=== PATIENT | female | born 1930 | race American Indian/Alaskan Native ===

== ENCOUNTER 2017-01-30 09:49 | Emergency (ER) | payer MEDICARE ==
[2017-01-30 10:16] VITALS: TEMP 97.7; BMI 32.3
--- NOTE | 2017-01-30 11:24 | ED PDOC ---
Arrival/HPI - General Chief Complaint: Trauma Time Seen by Provider: 01/30/17 11:03 Historian: Patient, Family (daughter) - History of Present Illness Narrative History of Present Illness (Text): 01/30/17 11:24 A 86 year old female, whose past medical history includes DVT (x1 year ago), UTI , syncope, and sepsis, presents to the emergency department for a fall, which occurred 2 days ago. The patient denies any head trauma or injuries. The patient reports she was completely asymptomatic prior to fall and denies losing consciousness prior, during, and after the fall. She currently complains of intermittent back pain, bilateral shoulder pain, and arm discomfort. The patient note she lives at home with her daughter. She was noticed to have bilateral hip ecchymosis today which is why she came to ED. She has been ambulatory. Time/Duration: < week (x 2 days ) Symptom Onset: Sudden Activities at Onset: Light Context: Home Past Medical History - Provider Review Nursing Documentation Reviewed: Yes - Infectious Disease Hx of Infectious Diseases: None - Cardiac Hx Cardiac Disorders: Yes Hx Hypertension: Yes - Pulmonary Hx Respiratory Disorders: No - Neurological Hx Neurological Disorder: Yes Hx Dementia: Yes - HEENT Hx HEENT Disorder: Yes Hx Cataracts: Yes - Renal Hx Renal Disorder: No - Endocrine/Metabolic Hx Endocrine Disorders: Yes Hx Diabetes Mellitus Type 2: Yes - Hematological/Oncological Hx Blood Disorders: No - Integumentary Other/Comment: large areas of brown discolored dry skin to lle and dry skin to ble - Musculoskeletal/Rheumatological Hx Musculoskeletal Disorders: Yes Hx Arthritis: Yes Hx Falls: Yes Hx Unsteady Gait: Yes Other/Comment: Total right knee replacement - Gastrointestinal Hx Gastrointestinal Disorders: No - Genitourinary/Gynecological Hx Genitourinary Disorders: Yes Hx Incontinence: Yes Other/Comment: prolpsed uterus noted with reddened skin at bottom, pt denies pain, has been bleeding "a little" lately, denies painful urination or painful bm's. Pt stated "I'v had this for about 2 weeks. The doctor hasn't seen it yet ". Pt gave to 12 children. - Psychiatric Hx Psychophysiologic Disorder: No Hx Depression: No Hx Emotional Abuse: No Hx Physical Abuse: No Hx Substance Use: No - Surgical History Hx Appendectomy: Yes (teenager) Hx Joint Replacement: Yes (total right knee replacement) - Anesthesia Hx Anesthesia Reactions: No Hx Malignant Hyperthermia: No - Suicidal Assessment Feels Threatened In Home Enviroment: No Family/Social History - Physician Review Nursing Documentation Reviewed: Yes Family/Social History: No Known Family HX Smoking Status: Never Smoked Hx Alcohol Use: No Hx Substance Use: No Hx Substance Use Treatment: No Allergies/Home Meds Allergies/Adverse Reactions: Allergies codeine Allergy (Verified 01/30/17 10:27) FATIGUE shellfish derived Allergy (Verified 01/30/17 10:27) ANAPHYLAXIS Home Medications: Home Meds Medication Instructions Recorded Confirmed Apixaban [Eliquis] 2.5 mg PO BID 01/30/17 01/30/17 Ferrous Sulfate [Feosol] 325 mg PO BID 01/30/17 01/30/17 Naproxen [Naprosyn] 500 mg PO BID 01/30/17 01/30/17 amLODIPine [Norvasc] 5 mg PO DAILY 01/30/17 01/30/17 Review of Systems - Physician Review All systems were reviewed & negative as marked: Yes - Review of Systems Constitutional: absent: Fevers Respiratory: absent: SOB Cardiovascular: absent: Chest Pain Musculoskeletal: Back Pain, Other (Shoulder pain ) Physical Exam - Physical Exam Narrative Physical Exam (Text): 01/30/17 11:25 Constitutional: No acute distress. Head: Normocephalic. Atraumatic. Eyes: PERRL. ENT: Moist mucous membranes. Neck: Supple. Cardiovascular: Regular rate. Chest: No tenderness. Respiratory: Clear to auscultation bilaterally. GI: Soft. Nontender. Nondistended. Back: No CVA tenderness. Musculoskeletal: No swelling of extremities. Ecchymosis to the right and left hip. ROM intact from ankles, knees, and hip. No pelvic tenderness bilaterally. Skin: No rash. Neurologic: Alert, no focal deficit. Vital Signs Reviewed: Yes Vital Signs Temp Pulse Resp BP Pulse Ox 01/30/17 13:27 87 18 151/91 H 99 01/30/17 10:16 97.7 F 91 H 19 153/96 H 98 01/30/17 10:15 97.7 F 91 H 19 153/96 H 98 Temperature: Afebrile Blood Pressure: Hypertensive Pulse: Tachycardic Respiratory Rate: Normal Appearance: Positive for: Well-Appearing, Non-Toxic, Comfortable Pain Distress: None Mental Status: Positive for: Alert and Oriented X 3 Medical Decision Making ED Course and Treatment: 01/30/17 11:27 Impression: A 86 year old female with intermittent back pain and bilateral shoulder pain due to fall. Differential Diagnosis included but are not limited to: Plan: -- Radiology: Hip Bilateral, Shoulder Right -- Reassess and disposition Prior Visits: Notes and results from previous visits were reviewed. The patient was last seen in the emergency department on 11/29/15 for UTI/ Sepsis. The patient was hospitalized. Progress Notes: The patient declines any pain medications/analgesics. XR shoulder and XR hips no fracture or dislocation. Patient has tramadol prescription already from Dr. Ortiz and family states he will follow up with her at her home. - RAD Interpretation Radiology Orders: 01/30/17 11:03 Hip Bilateral [HIP MIN 3V W/ PELVIS GUNNER] [RAD] Stat SHOULDER RIGHT [RAD] Stat - Scribe Statement The provider has reviewed the documentation as recorded by the Scribe Qian Rogel Provider Scribe Attestation: All medical record entries made by the Scribe were at my direction and personally dictated by me. I have reviewed the chart and agree that the record accurately reflects my personal performance of the history, physical exam, medical decision making, and the department course for this patient. I have also personally directed, reviewed, and agree with the discharge instructions and disposition. Disposition/Present on Arrival - Present on Arrival Any Indicators Present on Arrival: No History of DVT/PE: No History of Uncontrolled Diabetes: No Urinary Catheter: No History of Decub. Ulcer: No History Surgical Site Infection Following: None - Disposition Have Diagnosis and Disposition been Completed?: Yes Diagnosis: Fall, Contusion Disposition: HOME/ ROUTINE Disposition Time: 13:00 Patient Plan: Discharge Condition: STABLE Discharge Instructions (ExitCare): Hip Contusion (ED) Referrals: Jaret Ortiz MD [Primary Care Provider] - Follow up with primary Forms: [employer] (Czech)
--- NOTE | 2017-01-30 13:21 | RAD ---
PROCEDURE: Pelvis three views HISTORY: fall, hip ecchymosis COMPARISON: TECHNIQUE: Three views FINDINGS: There is no evidence of pelvic or hip fracture. No bony abnormalities seen IMPRESSION: Negative study
--- NOTE | 2017-01-30 13:21 | RAD ---
PROCEDURE: Radiographs of the Right Shoulder HISTORY: fall, R shoulder pain COMPARISON: No prior. FINDINGS: BONES: Normal. No fracture. JOINTS: Normal. Glenohumeral and acromioclavicular joints preserved. No osteoarthritis. SOFT TISSUES: Normal. OTHER FINDINGS: None. IMPRESSION: Normal radiographs of the right shoulder.
[2017-01-30 13:27] VITALS: BP 151/91; PULSE 87; RESP 18; O2SAT 99
== END 2017-01-30 13:28 | disposition home or self-care (01) ==
LOC: ED 09:49
DX: S70.02XA Contusion of left hip, initial encounter (principal); S70.01XA Contusion of right hip, initial encounter; W19.XXXA Unspecified fall, initial encounter; Y92.009 Unspecified place in unspecified non-institutional (private) residence as the place of occurrence of the external cause; I10 Essential (primary) hypertension; E11.9 Type 2 diabetes mellitus without complications

== ENCOUNTER 2017-04-12 19:09 | Emergency (ER) | payer MEDICARE ==
[2017-04-12 19:09] VITALS: BMI 32.3
[2017-04-12 19:37] VITALS: BP 142/86; PULSE 104; RESP 20; TEMP 98.9; O2SAT 97
--- NOTE | 2017-04-12 20:31 | CT ---
EXAM: CT Head Without Intravenous Contrast CLINICAL HISTORY: 86 years old, female; Injury or trauma; Fall; Initial encounter; Concussion / head injury TECHNIQUE: Axial computed tomography images of the head/brain without intravenous contrast. All CT scans at this facility use one or more dose reduction techniques, viz.: automated exposure control; ma/kV adjustment per patient size (including targeted exams where dose is matched to indication; i.e. head); or iterative reconstruction technique. COMPARISON: CT - HEAD W/O CONTRAST 2015-11-29 17:30 FINDINGS: Brain: Moderate atrophy. No intracranial hemorrhage. No mass. Mild encephalomalacia within LEFT frontal region. Multiple scattered foci of decreased attenuation within periventricular/subcortical white matter. No edema. Ventricles: No hydrocephalus. Bones/joints: No acute fracture. Soft tissues: LEFT frontal soft tissue swelling. Vasculature: Atherosclerotic disease of intracranial arteries. Sinuses: No acute sinusitis. Mastoid air cells: No mastoid effusion. Orbits: Unremarkable as visualized. IMPRESSION: 1. No intracranial hemorrhage. 2. Nonspecific white matter changes. 3. Incidental/non-acute findings are described above.
--- NOTE | 2017-04-12 20:43 | ED PDOC ---
Arrival/HPI - General Chief Complaint: Trauma Time Seen by Provider: 04/12/17 19:27 Historian: Patient - History of Present Illness Narrative History of Present Illness (Text): 04/12/17 20:37 86yo female with PMHx of hypertension, Alzheimer's biba for head injury s/p trauma this evening. Patient and the family members by the bedside notes chronic history of unsteady gait. Patient states she slipped while in the bathroom and hit face on the bathtub. She reports mild pain over the swelling on her left forehead. She denies LOC, nausea, focal weakness, dizziness, visual changes, any other complaint. Past Medical History - Provider Review Nursing Documentation Reviewed: Yes - Infectious Disease Hx of Infectious Diseases: None - Cardiac Hx Cardiac Disorders: Yes Hx Hypertension: Yes - Pulmonary Hx Respiratory Disorders: No - Neurological Hx Neurological Disorder: Yes Hx Dementia: Yes - HEENT Hx HEENT Disorder: Yes Hx Cataracts: Yes - Renal Hx Renal Disorder: No - Endocrine/Metabolic Hx Endocrine Disorders: Yes Hx Diabetes Mellitus Type 2: Yes - Hematological/Oncological Hx Blood Disorders: No - Integumentary Other/Comment: large areas of brown discolored dry skin to lle and dry skin to ble - Musculoskeletal/Rheumatological Hx Musculoskeletal Disorders: Yes Hx Arthritis: Yes Hx Falls: Yes Hx Unsteady Gait: Yes Other/Comment: Total right knee replacement - Gastrointestinal Hx Gastrointestinal Disorders: No - Genitourinary/Gynecological Hx Genitourinary Disorders: Yes Hx Incontinence: Yes Other/Comment: prolpsed uterus noted with reddened skin at bottom, pt denies pain, has been bleeding "a little" lately, denies painful urination or painful bm's. Pt stated "I'v had this for about 2 weeks. The doctor hasn't seen it yet ". Pt gave to 12 children. - Psychiatric Hx Psychophysiologic Disorder: No Hx Depression: No Hx Emotional Abuse: No Hx Physical Abuse: No Hx Substance Use: No - Surgical History Hx Appendectomy: Yes (teenager) Hx Joint Replacement: Yes (total right knee replacement) - Anesthesia Hx Anesthesia Reactions: No Hx Malignant Hyperthermia: No - Suicidal Assessment Feels Threatened In Home Enviroment: No Family/Social History - Physician Review Nursing Documentation Reviewed: Yes Family/Social History: Unknown Family HX Smoking Status: Never Smoked Hx Alcohol Use: No Hx Substance Use: No Hx Substance Use Treatment: No Allergies/Home Meds Allergies/Adverse Reactions: Allergies codeine Allergy (Verified 01/30/17 10:27) FATIGUE shellfish derived Allergy (Verified 01/30/17 10:27) ANAPHYLAXIS Home Medications: Home Meds Medication Instructions Recorded Confirmed Ferrous Sulfate [Feosol] 325 mg PO BID 01/30/17 04/12/17 amLODIPine [Norvasc] 5 mg PO DAILY 01/30/17 04/12/17 Review of Systems - Physician Review All systems were reviewed & negative as marked: Yes - Review of Systems Constitutional: Normal Eyes: Normal ENT: Normal Respiratory: Normal Cardiovascular: Normal Gastrointestinal: Normal Genitourinary Female: Normal Musculoskeletal: Normal Skin: Normal Neurological: Headache. absent: Dizziness, Focal Weakness Endocrine: Normal Hemo/Lymphatic: Normal Psychiatric: Normal Physical Exam Vital Signs Reviewed: Yes Vital Signs Temp Pulse Resp BP Pulse Ox 04/12/17 19:16 98.9 F 104 H 20 142/86 97 Temperature: Afebrile Blood Pressure: Normal Pulse: Regular Respiratory Rate: Normal Appearance: Positive for: Well-Appearing, Non-Toxic, Comfortable Pain Distress: None Mental Status: Positive for: Alert and Oriented X 3 - Systems Exam Head: Present: Normocephalic, Contusion (Approximately 4 x 4cm hematoma noted on left forehead with overlaying tenderness on palpation and bruise). No: Atraumatic Pupils: Present: PERRL Extroacular Muscles: Present: EOMI Conjunctiva: Present: Normal Mouth: Present: Moist Mucous Membranes Neck: Present: Normal Range of Motion Respiratory/Chest: Present: Clear to Auscultation, Good Air Exchange. No: Respiratory Distress, Accessory Muscle Use Cardiovascular: Present: Regular Rate and Rhythm, Normal S1, S2. No: Murmurs Abdomen: Present: Normal Bowel Sounds. No: Tenderness, Distention, Peritoneal Signs Back: Present: Normal Inspection Upper Extremity: Present: Normal Inspection. No: Cyanosis, Edema Lower Extremity: Present: Normal Inspection. No: Edema Neurological: Present: GCS=15, CN II-XII Intact, Speech Normal Skin: Present: Warm, Dry, Normal Color. No: Rashes Psychiatric: Present: Alert, Oriented x 3, Normal Insight, Normal Concentration Medical Decision Making ED Course and Treatment: 04/12/17 20:44 PT was AAO x3 and neurological intact in ED Head CT - Negative Ice was placed in ED and Tylenol given for headache. She was referred to her PMD. TRT ED for any new or worsening symptoms - RAD Interpretation Radiology Orders: 04/12/17 19:27 HEAD W/O CONTRAST [CT] Stat - Medication Orders Current Medication Orders: Discontinued Medications Acetaminophen (Tylenol 325mg Tab) 650 mg PO STAT STA Stop: 04/12/17 19:28 Last Admin: 04/12/17 19:38 Dose: 650 mg Disposition/Present on Arrival - Present on Arrival Any Indicators Present on Arrival: No History of DVT/PE: No History of Uncontrolled Diabetes: No Urinary Catheter: No History of Decub. Ulcer: No History Surgical Site Infection Following: None - Disposition Have Diagnosis and Disposition been Completed?: Yes Diagnosis: Head injury Disposition: HOME/ ROUTINE Disposition Time: 20:50 Patient Plan: Discharge Patient Problems: Current Active Problems Problem Status Onset Head injury Acute Condition: STABLE Discharge Instructions (ExitCare): Head Injury (ED) Additional Instructions: Follow up with your Doctor apply ice to area and avoid any strenuous activity Return to ED for any new or worsening symptoms Referrals: Jaret Ortiz MD [Primary Care Provider] - Follow up with primary Forms: [employer] (Polish)
--- NOTE | 2017-04-13 09:17 | CARD ---
APPROVED REPORT EKG Measurement Heart [id number] <Conclusion> Normal sinus rhythm NSSTW changes, new since 12/02/15 Prolonged QTc
== END 2017-04-12 20:59 | disposition home or self-care (01) ==
LOC: ED 19:09
DX: S09.90XA Unspecified injury of head, initial encounter (principal); W01.198A Fall on same level from slipping, tripping and stumbling with subsequent striking against other object, initial encounter; E11.9 Type 2 diabetes mellitus without complications; F02.80 Dementia in other diseases classified elsewhere, unspecified severity, without behavioral disturbance, psychotic disturbance, mood disturbance, and anxiety; G30.9 Alzheimer's disease, unspecified; I10 Essential (primary) hypertension

== ENCOUNTER 2017-09-09 23:08 | Observation (INO) | payer MEDICARE, OTHER ==
[2017-09-09 23:14] VITALS: BMI 18.8
--- NOTE | 2017-09-09 23:39 | ED PDOC ---
Arrival/HPI - General Chief Complaint: Weakness/Neurological Deficit Time Seen by Provider: 09/09/17 23:15 Historian: Patient, Family - History of Present Illness Narrative History of Present Illness (Text): 09/09/17 23:38 Demetria Nicole is an 87 year old female, whose past medical history includes DVT , UTI, hypertension, and Alzheimer's dementia, who presents to the Emergency department brought in by family complaining of lethargy and generalized weakness. Relative states patient has been experiencing a cough for the past 5 days and was given Promethazine at 19:00 today. Relative states patient then became lethargic and was unable to ambulate secondary to generalized weakness. Relative also notes associated elevated blood pressure and subjective fever. Patient denies any chest pain, abdominal pain, vomiting, diarrhea, or any other complaints. Time/Duration: Other (today) Symptom Onset: Gradual Symptom Course: Unchanged Activities at Onset: Light Context: Home Past Medical History - Provider Review Nursing Documentation Reviewed: Yes - Infectious Disease Hx of Infectious Diseases: None - Cardiac Hx Cardiac Disorders: Yes Hx Hypertension: Yes - Pulmonary Hx Respiratory Disorders: No - Neurological Hx Neurological Disorder: Yes Hx Dementia: Yes - HEENT Hx HEENT Disorder: Yes Hx Cataracts: Yes - Renal Hx Renal Disorder: No - Endocrine/Metabolic Hx Endocrine Disorders: Yes Hx Diabetes Mellitus Type 2: Yes - Hematological/Oncological Hx Blood Disorders: No - Integumentary Other/Comment: large areas of brown discolored dry skin to lle and dry skin to ble - Musculoskeletal/Rheumatological Hx Musculoskeletal Disorders: Yes Hx Arthritis: Yes Hx Falls: Yes Hx Unsteady Gait: Yes Other/Comment: Total right knee replacement - Gastrointestinal Hx Gastrointestinal Disorders: No - Genitourinary/Gynecological Hx Genitourinary Disorders: Yes Hx Incontinence: Yes Other/Comment: prolpsed uterus noted with reddened skin at bottom, pt denies pain, has been bleeding "a little" lately, denies painful urination or painful bm's. Pt stated "I'v had this for about 2 weeks. The doctor hasn't seen it yet ". Pt gave to 12 children. - Psychiatric Hx Psychophysiologic Disorder: No Hx Depression: No Hx Emotional Abuse: No Hx Physical Abuse: No Hx Substance Use: No - Surgical History Hx Appendectomy: Yes (teenager) Hx Joint Replacement: Yes (total right knee replacement) - Anesthesia Hx Anesthesia Reactions: No Hx Malignant Hyperthermia: No - Suicidal Assessment Feels Threatened In Home Enviroment: No Family/Social History - Physician Review Nursing Documentation Reviewed: Yes Family/Social History: Unknown Family HX Smoking Status: Never Smoked Hx Alcohol Use: No Hx Substance Use: No Hx Substance Use Treatment: No Allergies/Home Meds Allergies/Adverse Reactions: Allergies codeine Allergy (Verified 09/09/17 23:13) FATIGUE shellfish derived Allergy (Verified 09/09/17 23:13) ANAPHYLAXIS Home Medications: Home Meds Medication Instructions Recorded Confirmed Ferrous Sulfate [Feosol] 325 mg PO BID 01/30/17 04/12/17 amLODIPine [Norvasc] 5 mg PO DAILY 01/30/17 04/12/17 Review of Systems - Physician Review All systems were reviewed & negative as marked: Yes - Review of Systems Constitutional: Fatigue, Fevers Eyes: Normal ENT: Normal Respiratory: Cough. absent: SOB Cardiovascular: Normal. absent: Chest Pain Gastrointestinal: Normal. absent: Abdominal Pain, Diarrhea, Nausea, Vomiting Genitourinary Female: Normal. absent: Dysuria, Frequency, Hematuria, Urine Output Changes Musculoskeletal: Normal. absent: Back Pain, Neck Pain Skin: Normal. absent: Rash Endocrine: Normal Hemo/Lymphatic: Normal Psychiatric: Normal Physical Exam Vital Signs Reviewed: Yes Vital Signs Temp Pulse Resp BP Pulse Ox 09/10/17 03:45 86 18 97 09/09/17 23:35 98.6 F 100 H 18 155/82 H 96 Temperature: Afebrile Blood Pressure: Normal Pulse: Regular Respiratory Rate: Normal Appearance: Positive for: Well-Appearing, Non-Toxic, Comfortable Pain Distress: None Mental Status: Positive for: Alert and Oriented X 3 - Systems Exam Head: Present: Atraumatic, Normocephalic Pupils: Present: PERRL Extroacular Muscles: Present: EOMI Conjunctiva: Present: Normal Mouth: Present: Moist Mucous Membranes Neck: Present: Normal Range of Motion Respiratory/Chest: Present: Clear to Auscultation, Good Air Exchange. No: Respiratory Distress, Accessory Muscle Use Cardiovascular: Present: Regular Rate and Rhythm, Normal S1, S2. No: Murmurs Abdomen: No: Tenderness, Distention, Peritoneal Signs Back: Present: Normal Inspection Upper Extremity: Present: Normal Inspection. No: Cyanosis, Edema Lower Extremity: Present: Normal Inspection. No: Edema Neurological: Present: GCS=15, CN II-XII Intact, Speech Normal Skin: Present: Warm, Dry, Normal Color. No: Rashes Psychiatric: Present: Alert, Oriented x 3, Normal Insight, Normal Concentration Medical Decision Making ED Course and Treatment: 09/09/17 23:38 Impression: 87 year old female brought in for lethargy, generalized weakness, fever, and cough. Plan: -- CT Head w/o contrast -- EKG -- Chest X-ray -- Labs, cardiac enzymes, TSH, blood cultures -- Urinalysis, urine cultures, urine drug screen -- Reassess and disposition Prior Visits: Notes and results from previous visits were reviewed. Progress Notes: reviewed EKG, NSR at [address] bpm[address] Non-specific ST/T wave changes. 09/10/17 02:00 Chest X-ray reviewed, shows right-sided patchy infiltrates. 09/10/17 02:47 Case discussed with chief medical director occupational therapy assistant, who is aware and agrees with plan. 09/10/17 02:[address] Nguyen, who is aware and agrees with plan. Accepts pt in to hospitalist service. Pt will go to Remote Telemetry for pneumonia. 09/10/17 03:33 CT Head shows: Limitations: Motion artifact - mild. Brain: Moderate atrophy. No definite intracranial hemorrhage. No mass. Mild encephalomalacia within left frontal region. Extensive decreased attenuation within periventricular/subcortical white matter. Probable chronic lacunar infarcts within basal ganglia. No definite edema. Ventricles: No hydrocephalus. Bones/joints: No acute fracture. Soft tissues: Unremarkable. Vasculature: Mild atherosclerotic disease of intracranial arteries. Sinuses: No acute sinusitis. Mastoid air cells: No mastoid effusion. Orbits: Unremarkable as visualized. IMPRESSION: 1. Nonspecific white matter changes. Acute infarction may be CT occult within first 24 hours. If a focal deficit persists, consider followup CT or MRI for further evaluation. 2. Incidental/non-acute findings are described above. - Lab Interpretations Lab Results: 09/10/17 00:10 09/10/17 00:10 Lab Results 09/10/17 02:03: Urine Opiates Screen Negative, Urine Methadone Screen Negative, Ur Barbiturates Screen Negative, Ur Phencyclidine Scrn Negative, Ur Amphetamines Screen Negative, U Benzodiazepines Scrn Negative, U Oth Cocaine Metabols Negative, U Cannabinoids Screen Negative 09/10/17 02:03: Urine Color Yellow, Urine Appearance Sl cloudy, Urine pH 6.0, Ur Specific [place] 1.025, Urine Protein 100 H, Urine Glucose (UA) Negative, Urine Ketones Negative, Urine Blood Negative, Urine Nitrate Negative, Urine Bilirubin Negative, Urine Urobilinogen 0.2, Ur Leukocyte Esterase Negative, Urine RBC 0 - 2, Urine WBC Negative, Ur Epithelial Cells 4 - 5, Urine Bacteria Mod, Urine Other Mucus 09/10/17 00:10: Sodium 141, Potassium 3.3 L, Chloride 102, Carbon Dioxide 26, Anion Gap 16, BUN 17, Creatinine 0.7, Est GFR ( Amer) > 60, Est GFR (Non- Af Amer) > 60, Random Glucose 146 H, Calcium 9.5, Phosphorus 3.3, Magnesium 1.8 , Total Bilirubin 0.7, AST 36, ALT 17, Alkaline Phosphatase 52, Lactate Dehydrogenase 598, Total Creatine Kinase 65, Troponin I < 0.01, Total Protein 8.9 H, Albumin 4.3, Globulin 4.6, Albumin/Globulin Ratio 0.9 L 09/10/17 00:10: PT 12.6 H, INR 1.10 H, APTT 24.3 L 09/10/17 00:10: WBC 15.2 H D, RBC 4.26, Hgb 12.4, Hct 37.6, MCV 88.3, MCH 29.1, MCHC 33.0, RDW 14.7 H, Plt Count 161, MPV 9.5, Gran % 91.9 H, Lymph % (Auto) 4.7 L, Cavalier % (Auto) 3.2, Eos % (Auto) 0.1 L, Baso % (Auto) 0.1, Gran # 14.01 H , Lymph # (Auto) 0.7 L, Cavalier # (Auto) 0.5, Eos # (Auto) 0.0, Baso # (Auto) 0.01 , Neutrophils % (Manual) 92 H, Band Neutrophils % 1, Lymphocytes % (Manual) 4 L , Monocytes % (Manual) 3, Toxic Granulation Slight, Platelet Evaluation Normal, Large Platelets Present, Ovalocytes Slight 09/09/17 23:59: Procalcitonin < 0.05 L 09/09/17 23:59: TSH 3rd Generation 0.80 I have reviewed the lab results: Yes - RAD Interpretation Radiology Orders: 09/09/17 23:44 HEAD W/O CONTRAST [CT] Stat 09/09/17 23:46 CHEST ONE VIEW [RAD] Stat Academic Program Specialist: ED Physician, Radiologist - EKG Interpretation Interpreted by ED Physician: Yes Type: 12 lead EKG - Medication Orders Current Medication Orders: Amlodipine Besylate (Norvasc) 5 mg PO DAILY [facility] Last Admin: 09/10/17 10:00 Dose: 5 mg MAR Pulse and Blood Pressure Document 09/10/17 10:00 (Rec: 09/10/17 10:00 [id number] Pulse Pulse Rate (60-90) 85 Blood Pressure Blood Pressure (100/60-150/90) 147/81 Donepezil HCl (Aricept) 5 mg PO HS [facility] Heparin Sodium (Porcine) (Heparin) 5,000 units SC Q12 ALYCE PRN Reason: Protocol Last Admin: 09/10/17 10:00 Dose: 5,000 units Subcutaneous Administrations Document 09/10/17 10:00 (Rec: 09/10/17 10:00 [facility] [id number]) Injection Site MAR Injection Site Right Abdomen Charges for Administration # of Subcutaneous Administrations 1 Ceftriaxone Sodium (Rocephin 1 Gram Ivpb) 1 gm in 100 mls @ 100 mls/hr IVPB DAILY ALYCE PRN Reason: Protocol Stop: 09/14/17 10:59 Last Admin: 09/10/17 14:02 Dose: 100 mls/hr eMAR Start Stop Document 09/10/17 14:02 (Rec: 09/10/17 14:02 [facility] [id number]) Intravenous Solution Start Date 09/10/17 Start Time 14:02 End Date 09/10/17 End time 15:10 Total Infusion Time 68 Pantoprazole Sodium (Protonix Ec Tab) 40 mg PO 0600 [facility] Last Admin: 09/10/17 06:43 Dose: Not Given Non-Admin Reason: Patient Lethargic Discontinued Medications Diphenhydramine HCl (Benadryl) 10 mg IVP STAT STA Stop: 09/10/17 17:23 Last Admin: 09/10/17 17:41 Dose: Diphenhydramine HCl (Benadryl) 25 mg PO STAT STA Stop: 09/10/17 18:08 Ceftriaxone Sodium (Rocephin 1 Gram Ivpb) 1 gm in 100 mls @ 200 mls/hr IVPB STAT STA PRN Reason: Protocol Stop: 09/10/17 03:18 Last Admin: 09/10/17 03:05 Dose: 200 mls/hr eMAR Start Stop Document 09/10/17 03:05 SS (Rec: 09/10/17 03:05 SS [id number]) Intravenous Solution Start Date 09/10/17 Start Time 03:05 End Date 09/10/17 End time 03:35 Total Infusion Time 30 Azithromycin (Zithromax 500mg In Ns) 500 mg in 250 mls @ 167 mls/hr IVPB STAT STA PRN Reason: Protocol Stop: 09/10/17 04:19 Last Admin: 09/10/17 03:41 Dose: 167 mls/hr eMAR Start Stop Document 09/10/17 03:41 SS (Rec: 09/10/17 03:41 SS [id number]) Intravenous Solution Start Date 09/10/17 Start Time 03:41 End Date 09/10/17 End time 05:11 Total Infusion Time 90 Azithromycin (Zithromax 500mg In Ns) 500 mg in 250 mls @ 167 mls/hr IVPB DAILY ALYCE PRN Reason: Protocol Last Admin: 09/10/17 16:25 Dose: 167 mls/hr eMAR Start Stop Document 09/10/17 16:25 JJ (Rec: 09/10/17 16:26 [id number] Intravenous Solution Start Date 09/10/17 Start Time 16:25 End Date 09/10/17 End time 18:00 Total Infusion Time 95 Potassium Chloride (K-Dur 20 Meq Er Tab) 20 meq PO ONCE ONE Stop: 09/10/17 00:39 Last Admin: 09/10/17 01:56 Dose: 20 meq Potassium Chloride (K-Dur 20 Meq Er Tab) 40 meq PO STAT STA Stop: 09/10/17 08:49 Last Admin: 09/10/17 10:00 Dose: 40 meq - Scribe Statement The provider has reviewed the documentation as recorded by the Scribenzo Choi All medical record entries made by the Siddharthaibenzo were at my direction and personally dictated by me. I have reviewed the chart and agree that the record accurately reflects my personal performance of the history, physical exam, medical decision making, and the department course for this patient. I have also personally directed, reviewed, and agree with the discharge instructions and disposition. Disposition/Present on Arrival - Present on Arrival Any Indicators Present on Arrival: No History of DVT/PE: No History of Uncontrolled Diabetes: No Urinary Catheter: No History of Decub. Ulcer: No History Surgical Site Infection Following: None - Disposition Have Diagnosis and Disposition been Completed?: Yes Diagnosis: Pneumonia Disposition: HOSPITALIZED Disposition Time: 02:45 Condition: FAIR
[2017-09-10 00:26] LABS: BASO # 0.01 K/mm3 (0.0-2.0); BASO % 0.1 % (0.0-3.0); EOS % 0.1 % (1.5-5.0); GRAN # 14.01 (1.4-6.5); GRAN % 91.9 % (50.0-68.0); HEMOGLOBIN 12.4 g/dL (12.0-16.0); LYMPH # 0.7 (1.2-3.4); LYMPH % 4.7 % (22.0-35.0); MEAN CELL VOLUME 88.3 fl (80.0-105.0); MEAN CORPUSCULAR HEMOGLOBIN 29.1 pg (25.0-35.0); MEAN PLATELET VOLUME 9.5 fl (7.0-11.0); MONO # 0.5 (0.1-0.6); MONO % 3.2 % (1.0-6.0); PLATELET COUNT 161 10^3/uL (120.0-450.0); RBC 4.26 10^6/uL (3.5-6.1); RED CELL DISTRIBUTION WIDTH 14.7 % (11.5-14.5)
[2017-09-10 00:31] LABS: WHITE BLOOD COUNT 15.2 10^3/ul (4.5-11.0)
[2017-09-10 00:37] LABS: ALB/GLOB RATIO 0.9 (1.1-1.8); ALBUMIN 4.3 g/dL (3.0-4.8); ALT/SGPT 17 U/L (7-56); AST/SGOT 36 U/L (14-36); BLOOD UREA NITROGEN 17 mg/dL (7-21); CALCIUM 9.5 mg/dL (8.4-10.5); GFR AFRICAN-AMERICAN > 60; GFR NON-AFRICAN AMERICAN > 60
[2017-09-10] MEDS ORDERED: Potassium Chloride 20 mEq ER Tab PO ONE (00:38)
[2017-09-10 00:45] LABS: INR 1.1 (0.93-1.08); PARTIAL THROMBOPLASTIN TIME 24.3 Seconds (25.1-36.5); PROTHROMBIN TIME 12.6 SECONDS (9.4-12.5)
[2017-09-10 00:48] LABS: TROPONIN I < 0.01 ng/mL
[2017-09-10 01:07] LABS: BAND 1 % (0-2); LYMPHOCYTE 4 % (22.0-35.0); MONOCYTE 3 % (1.0-6.0); NEUTROPHIL 92 % (50.0-70.0)
[2017-09-10 01:09] LABS: LARGE PLATELETS PRESENT; OVALOCYTES SLIGHT
[2017-09-10 01:10] LABS: TOXIC GRANULATION SLIGHT
[2017-09-10 01:11] LABS: PLATELET ESTIMATE NORMAL (NORMAL)
[2017-09-10 02:17] LABS: URINE BILIRUBIN NEGATIVE (NEGATIVE); URINE BLOOD NEGATIVE (NEGATIVE); URINE GLUCOSE (UA) NEGATIVE (NEGATIVE); URINE LEUKOCYTE ESTERASE NEGATIVE Leu/uL (NEGATIVE); URINE PROTEIN 100 mg/dL (<30 mg/dL); URINE UROBILINOGEN 0.2 E.U./dL (<1 E.U./dL)
[2017-09-10 02:25] LABS: URINE APPEARANCE SL CLOUDY (CLEAR); URINE COLOR YELLOW (YELLOW)
[2017-09-10 02:39] LABS: URINE RBC 0 - 2 /hpf (0-2); URINE WBC NEGATIVE /hpf (0-6)
[2017-09-10 02:40] LABS: URINE BACTERIA MOD (NEG)
[2017-09-10] MEDS ORDERED: cefTRIAXone 1 gm 1 GM/100 ML BAG IVPB STA (02:49)
[2017-09-10] MEDS ORDERED: Azithromycin 500MG/NS 250ml 500 MG/250 ML BAG IVPB STA (02:50)
[2017-09-10 02:56] LABS: PHENCYCLIDINE, UR NEGATIVE (NEGATIVE)
[2017-09-10 03:15] LABS: BARBITURATES, UR NEGATIVE (NEGATIVE); BENZODIAZEPINES, UR NEGATIVE (NEGATIVE); OPIATES, UR NEGATIVE (NEGATIVE)
--- NOTE | 2017-09-10 03:26 | CT ---
EXAM: CT Head Without Intravenous Contrast CLINICAL HISTORY: 87 years old, female; Signs and symptoms; Altered mental status/memory loss; Additional info: AMS TECHNIQUE: Axial computed tomography images of the head/brain without intravenous contrast. All CT scans at this facility use one or more dose reduction techniques, viz.: automated exposure control; ma/kV adjustment per patient size (including targeted exams where dose is matched to indication; i.e. head); or iterative reconstruction technique. Coronal and sagittal reformatted images were created and reviewed. COMPARISON: No relevant prior studies available. FINDINGS: Limitations: Motion artifact - mild. Brain: Moderate atrophy. No definite intracranial hemorrhage. No mass. Mild encephalomalacia within left frontal region. Extensive decreased attenuation within periventricular/subcortical white matter. Probable chronic lacunar infarcts within basal ganglia. No definite edema. Ventricles: No hydrocephalus. Bones/joints: No acute fracture. Soft tissues: Unremarkable. Vasculature: Mild atherosclerotic disease of intracranial arteries. Sinuses: No acute sinusitis. Mastoid air cells: No mastoid effusion. Orbits: Unremarkable as visualized. IMPRESSION: 1. Nonspecific white matter changes. Acute infarction may be CT occult within first 24 hours. If a focal deficit persists, consider followup CT or MRI for further evaluation. 2. Incidental/non-acute findings are described above.
--- NOTE | 2017-09-10 03:56 | CP.PCM.HP ---
Addendum entered and electronically signed by Josué Cruz DO 05:07: GI/DVT Prophylaxis - Protonix/Heparin (high bryant score) Original Note: <Josué Cruz - Last Filed: 09/10/17 04:17> History of Present Illness - History of Present Illness History of Present Illness: Medicine H&P: Dr. Nguyen Chief Complaint: Lethargy HPI: 87 year old female with past medical history significant for Alzheimer's, DVT in left lower extremity no longer on Eliquis, Hypertension, Recurrent UTIs, and Uterine prolapse presents with 1 day duration of cough and generalized fatigue. Patient states that she feels fine right now but that she felt subjective fevers at home (no chills). She does state that she has been coughing up green phlegm. Patient denies shortness of breath and chest pain associated with these symptoms. Patient's family is at bedside, including her daughter, who states that patient has been fatigued all day. Patient and her family deny any altered mentation. Of note, patient has been admitted to this facility multiple times for falls in the past. Her last ECHO was in 2015 - it showed EF of 51% with AR, MR, and UT. Patient has also had a UTI that showed Klebsiella Pneumonia on Urine Culture on one of her past admissions. Finally, on past admission in November 2015, patient had DVT in left leg, but has since had Eliquis discontinued. Review of Systems: 12 point ROS obtained and negative except as per HPI Surgical History: Bilateral eye surgery; R knee surgery Medical History: Left lower extremity DVT, Alzheimer's, Hypertension, Recurrent UTI, Uterine prolapse Allergies: Codeine, Shellfish Social History: Denies alcohol, tobacco, illicits Home Meds: Amlodipine, Feosol PMD: Dr. Ortiz Present on Admission - Present on Admission Any Indicators Present on Admission: No Past Patient History - Infectious Disease Hx of Infectious Diseases: None - Past Social History Smoking Status: Never Smoked - CARDIAC Hx Cardiac Disorders: Yes Hx Hypertension: Yes - PULMONARY Hx Respiratory Disorders: No - NEUROLOGICAL Hx Neurological Disorder: Yes Hx Dementia: Yes - HEENT Hx HEENT Problems: Yes Hx Cataracts: Yes - RENAL Hx Chronic Kidney Disease: No - ENDOCRINE/METABOLIC Hx Endocrine Disorders: Yes Hx Diabetes Mellitus Type 2: Yes - HEMATOLOGICAL/ONCOLOGICAL Hx Blood Disorders: No - INTEGUMENTARY Other/Comment: large areas of brown discolored dry skin to lle and dry skin to ble - MUSCULOSKELETAL/RHEUMATOLOGICAL Hx Musculoskeletal Disorders: Yes Hx Arthritis: Yes Hx Falls: Yes Hx Unsteady Gait: Yes Other/Comment: Total right knee replacement - GASTROINTESTINAL Hx Gastrointestinal Disorders: No - GENITOURINARY/GYNECOLOGICAL Hx Genitourinary Disorders: Yes Hx Incontinence: Yes Other/Comment: prolpsed uterus noted with reddened skin at bottom, pt denies pain, has been bleeding "a little" lately, denies painful urination or painful bm's. Pt stated "I'v had this for about 2 weeks. The doctor hasn't seen it yet ". Pt gave to 12 children. - PSYCHIATRIC Hx Psychophysiologic Disorder: No Hx Depression: No Hx Emotional Abuse: No Hx Physical Abuse: No Hx Substance Use: No - SURGICAL HISTORY Hx Appendectomy: Yes (teenager) Hx Joint Replacement: Yes (total right knee replacement) - ANESTHESIA Hx Anesthesia Reactions: No Hx Malignant Hyperthermia: No Meds Allergies/Adverse Reactions: Allergies Allergy/AdvReac Type Severity Reaction Status Date / Time codeine Allergy FATIGUE Verified 09/09/17 23:13 shellfish derived Allergy ANAPHYLAXIS Verified 09/09/17 23:13 Physical Exam - Constitutional Appears: Well, No Acute Distress - Head Exam Head Exam: ATRAUMATIC, NORMAL INSPECTION, NORMOCEPHALIC - Eye Exam Eye Exam: Normal appearance, PERRL Pupil Exam: NORMAL ACCOMODATION, PERRL Additional comments: Patient's Iris is triangular on the left; pupils are wider than normal, but are reactive to light and accommodation - ENT Exam ENT Exam: Mucous Membranes Moist, Normal Exam - Neck Exam Neck exam: Positive for: Normal Inspection - Respiratory Exam Respiratory Exam: Clear to Auscultation Bilateral, NORMAL BREATHING PATTERN - Cardiovascular Exam Cardiovascular Exam: REGULAR RHYTHM - GI/Abdominal Exam GI & Abdominal Exam: Normal Bowel Sounds, Soft. absent: Tenderness - Extremities Exam Extremities exam: Positive for: normal inspection - Back Exam Back exam: NORMAL INSPECTION - Neurological Exam Neurological exam: Alert, CN II-XII Intact, Normal Gait, Oriented x3, Reflexes Normal - Psychiatric Exam Psychiatric exam: Normal Affect, Normal Mood - Skin Skin Exam: Dry, Intact, Normal Color, Warm Results - Vital Signs Recent Vital Signs: Last Vital Signs Temp 98.6 F 09/09/17 23:35 Pulse 86 09/10/17 03:45 Resp 18 09/10/17 03:45 BP 155/82 H 09/09/17 23:35 Pulse Ox 97 09/10/17 03:45 - Labs Result Diagrams: 09/10/17 00:10 09/10/17 00:10 Assessment & Plan - Assessment and Plan (Free Text) Assessment: 87 year old female with past medical history significant for Alzheimer's, DVT in left lower extremity no longer on Eliquis, Hypertension, Recurrent UTIs, and Uterine prolapse presenting with one day of cough and fatigue. Patient was found to have a white count of 15.2 but patient afebrile with no other SIRS criteria; UA negative Chest XR formal read pending. Patient is saturating well on room air for now. Patient was also hypokalemic on admission; K-dur was given. Tox screen was ordered and is negative. Last ECHO was in November 2015 which showed 51% EF. Plan Lethargy, possibly 2/2 infection - Blood culture, Urine culture - Azithro and Rocephin empirically - Procal ordered, ECHO ordered Hypokalemia - Monitor CMP History of Frequent Falls - ECHO ordered - Patient no longer on Eliquis History of Hypertension - Continue Amlodipine History of Anemia - Continue Feosol History of DVT - No intervention <Destiny Nguyen - Last Filed: 09/10/17 05:42> Results - Vital Signs Recent Vital Signs: Last Vital Signs Temp 98.6 F 09/09/17 23:35 Pulse 86 09/10/17 03:45 Resp 18 09/10/17 03:45 BP 155/82 H 09/09/17 23:35 Pulse Ox 97 09/10/17 03:45 - Labs Result Diagrams: 09/10/17 00:10 09/10/17 00:10 Attending/Attestation - Attestation I have personally seen and examined this patient.: Yes I have fully participated in the care of the patient.: Yes I have reviewed all pertinent clinical information: Yes Notes (Text): 09/10/17 05:21 O/E of pupils,both pupils are round and reactive,the right is slightly smaller than the left. Lungs: fine crepts heard on auscultation of the L side,the R side is clear. 09/10/17 05:40
[2017-09-10] MEDS: Pantoprazole 40 mg EC Tab PO SCH (06:43)
[2017-09-10 08:41] LABS: CALCIUM 9.2 mg/dL (8.4-10.5); GFR AFRICAN-AMERICAN > 60; GFR NON-AFRICAN AMERICAN > 60
[2017-09-10 08:47] LABS: BLOOD UREA NITROGEN 14 mg/dL (7-21)
[2017-09-10] MEDS ORDERED: Potassium Chloride 20 mEq ER Tab PO STA (08:48)
[2017-09-10 08:54] LABS: HEMOGLOBIN 11.8 g/dL (12.0-16.0); MEAN CELL VOLUME 88.8 fl (80.0-105.0); MEAN CORPUSCULAR HEMOGLOBIN 28.9 pg (25.0-35.0); MEAN CORPUSCULAR HGB CONC 32.5 g/dl (31.0-37.0); MEAN PLATELET VOLUME 9.7 fl (7.0-11.0); RBC 4.09 10^6/uL (3.5-6.1); RED CELL DISTRIBUTION WIDTH 14.8 % (11.5-14.5); WHITE BLOOD COUNT 12.9 10^3/ul (4.5-11.0)
[2017-09-10 09:36] LABS: ARTERIAL BLOOD GAS HCO3 25.3 mmol/L (21-28); ARTERIAL BLOOD GAS O2 SAT 96.9 % (95-98); ARTERIAL BLOOD GAS PCO2 34 mm/Hg (35-45); ARTERIAL BLOOD GAS PH 7.48 (7.35-7.45); ARTERIAL BLOOD GAS TCO2 26.3 mmol.L (22-28)
--- NOTE | 2017-09-10 09:41 | RAD ---
PROCEDURE: CHEST RADIOGRAPH, 1 VIEW HISTORY: pain COMPARISON: 11/30/2015 FINDINGS: LUNGS: Clear. PLEURA: No pneumothorax or pleural fluid seen. CARDIOVASCULAR: Chronic mild vascular congestion. Mild cardiomegaly OSSEOUS STRUCTURES: No significant abnormalities. VISUALIZED UPPER ABDOMEN: Normal. OTHER FINDINGS: None. IMPRESSION: Chronic mild vascular congestion. Mild cardiomegaly
--- NOTE | 2017-09-10 11:06 | CARD ---
APPROVED REPORT EKG Measurement Heart [id number] <Conclusion> Normal sinus rhythm Moderate voltage criteria for LVH, may be normal variant Cannot rule out Septal infarct, age undetermined ST_T Changes.
[2017-09-10] MEDS: cefTRIAXone 1 gm 1 GM/100 ML BAG IVPB SCH (14:02)
[2017-09-10] MEDS ORDERED: Azithromycin 500MG/NS 250ml 500 MG/250 ML BAG IVPB SCH (16:00)
--- NOTE | 2017-09-10 16:27 | CP.PCM.CON ---
History of Present Illness - History of Present Illness History of Present Illness: 87 year old female with PMH of dementia, history of DVT of left lower extremity , HTN, history of UTI, history of uterine prolapse [place] [facility] [place] with greenish phlegm for about 1-2 days associated with generalized weakness and fatigue. The patient is currently feeling better, denies nausea, no vomiting, no diarrhea, no headache, no dizziness, no dysuria. In the ED, she was noted to have leukocytosis and Infectious Diseases consult is requested to further evaluate and manage. Review of Systems - Review of Systems All systems: reviewed and no additional remarkable complaints except (as per HPI ) Past Patient History - Infectious Disease Hx of Infectious Diseases: None - Past Social History Smoking Status: Never Smoked - CARDIAC Hx Hypertension: Yes - PULMONARY Hx Respiratory Disorders: No - NEUROLOGICAL Hx Dementia: Yes - HEENT Hx Cataracts: Yes - RENAL Hx Chronic Kidney Disease: No - ENDOCRINE/METABOLIC Hx Diabetes Mellitus Type 2: Yes - HEMATOLOGICAL/ONCOLOGICAL Hx Blood Disorders: No - INTEGUMENTARY Other/Comment: large areas of brown discolored dry skin to lle and dry skin to ble - MUSCULOSKELETAL/RHEUMATOLOGICAL Hx Falls: Yes - GASTROINTESTINAL Hx Gastrointestinal Disorders: No - GENITOURINARY/GYNECOLOGICAL Hx Incontinence: Yes Hx Urinary Tract Infection: Yes - PSYCHIATRIC Hx Psychophysiologic Disorder: No Hx Depression: No Hx Emotional Abuse: No Hx Physical Abuse: No Hx Substance Use: No - SURGICAL HISTORY Hx Surgeries: Yes Hx Appendectomy: Yes Hx Joint Replacement: Yes (Total Right knee replacement) - ANESTHESIA Hx Anesthesia Reactions: No Hx Malignant Hyperthermia: No Meds Allergies/Adverse Reactions: Allergies Allergy/AdvReac Type Severity Reaction Status Date / Time codeine Allergy FATIGUE Verified 09/09/17 23:13 shellfish derived Allergy ANAPHYLAXIS Verified 09/09/17 23:13 - Medications Medications: Current Medications Amlodipine Besylate (Norvasc) 5 mg PO DAILY [facility] Last Admin: 09/10/17 10:00 Dose: 5 mg Heparin Sodium (Porcine) (Heparin) 5,000 units SC Q12 [facility] PRN Reason: Protocol Last Admin: 09/10/17 10:00 Dose: 5,000 units Ceftriaxone Sodium (Rocephin 1 Gram Ivpb) 1 gm in 100 mls @ 100 mls/hr IVPB DAILY [facility] PRN Reason: Protocol Stop: 09/14/17 10:59 Azithromycin (Zithromax 500mg In Ns) 500 mg in 250 mls @ 167 mls/hr IVPB DAILY [facility] PRN Reason: Protocol Pantoprazole Sodium (Protonix Ec Tab) 40 mg PO 0600 [facility] Last Admin: 09/10/17 06:43 Dose: Not Given Physical Exam - Constitutional Appears: Non-toxic, Chronically Ill - Head Exam Head Exam: NORMAL INSPECTION - ENT Exam ENT Exam: Mucous Membranes Moist - Neck Exam Neck exam: Negative for: Meningismus - Respiratory Exam Respiratory Exam: Decreased Breath Sounds (some crackles at the bases) - Cardiovascular Exam Cardiovascular Exam: +S1, +S2 - GI/Abdominal Exam GI & Abdominal Exam: Soft. absent: Tenderness Results - Vital Signs Recent Vital Signs: Last Vital Signs Temp 98.2 F 09/10/17 06:00 Pulse 85 09/10/17 10:00 Resp 19 09/10/17 06:00 BP 147/81 09/10/17 10:00 Pulse Ox 98 09/10/17 06:00 - Labs Result Diagrams: 09/10/17 08:30 09/10/17 08:00 Labs: Laboratory Results - last 24 hr 09/10/17 09/10/17 09/10/17 08:00 08:30 09:30 WBC 12.9 H RBC 4.09 Hgb 11.8 L Hct 36.3 MCV 88.8 MCH 28.9 MCHC 32.5 RDW 14.8 H Plt Count 167 MPV 9.7 pCO2 34 L pO2 67.0 L HCO3 25.3 ABG pH 7.48 H ABG Total CO2 26.3 ABG O2 Saturation 96.9 ABG Base Excess 2.2 ABG Potassium 3.0 L Glucose 157 H Lactate 1.6 FiO2 21.0 Sodium 142 138.0 Potassium 3.3 L Chloride 105 108.0 H Carbon Dioxide 25 Anion Gap 15 BUN 14 Creatinine 0.7 Est GFR ( Amer) > 60 Est GFR (Non-Af Amer) > 60 Random Glucose 102 Calcium 9.2 Arterial Blood Potassium 3.0 L Assessment & Plan - Assessment and Plan (Free Text) Plan: Assessment Systemic Inflammatory response syndrome, consider due to acute bronchitis, R/O bacterial sepsis but so far no specific source identified dementia history of DVT of left lower extremity HTN history of UTI history of uterine prolapse Plan Patient has been started on Rocephin and Zithromax and will follow up blood, sputum cx; PCT is <0.05 and CXR is clear, not showing pneumonia will monitor clinically
[2017-09-10] MEDS ORDERED: DiphenhydrAMINE 50 mg/ml Inj IVP STA (17:22)
--- NOTE | 2017-09-10 19:37 | CP.PCM.PN ---
Subjective - Date & Time of Evaluation Date of Evaluation: 09/10/17 Time of Evaluation: 19:30 - Subjective Subjective: Huseyin Bey Resident director special education Note: Paged by RN, informing me that advanced directive is placed in chart. Paperwork reviewed. Patient seen and family is at bedside. Definition of DNR and DNI explained to patient and family. All agree to uphold DNR/DNI as defined in the advanced directive. All questions were thoroughly addressed. Code status in chart amended to reflect this change. Objective - Vital Signs/Intake and Output Vital Signs (last 24 hours): Temp Pulse Resp BP Pulse Ox 98 F 91 H 18 134/88 98 09/10/17 17:46 09/10/17 17:46 09/10/17 17:46 09/10/17 17:46 09/10/17 06:00 Intake and Output: 09/10/17 09/11/17 18:59 06:59 Intake Total 300 Output Total 600 Balance -300 - Medications Medications: Current Medications Amlodipine Besylate (Norvasc) 5 mg PO DAILY [facility] Last Admin: 09/10/17 10:00 Dose: 5 mg Donepezil HCl (Aricept) 5 mg PO HS [facility] Heparin Sodium (Porcine) (Heparin) 5,000 units SC Q12 [facility] PRN Reason: Protocol Last Admin: 09/10/17 10:00 Dose: 5,000 units Ceftriaxone Sodium (Rocephin 1 Gram Ivpb) 1 gm in 100 mls @ 100 mls/hr IVPB DAILY [facility] PRN Reason: Protocol Stop: 09/14/17 10:59 Last Admin: 09/10/17 14:02 Dose: 100 mls/hr Pantoprazole Sodium (Protonix Ec Tab) 40 mg PO 0600 [facility] Last Admin: 09/10/17 06:43 Dose: Not Given - Labs Labs: 09/10/17 08:30 09/10/17 08:00 PT 12.6 SECONDS (9.4-12.5) H 09/10/17 00:10 INR 1.10 (0.93-1.08) H 09/10/17 00:10 APTT 24.3 Seconds (25.1-36.5) L 09/10/17 00:10
[2017-09-11] MEDS: Pantoprazole 40 mg EC Tab PO SCH (05:36)
[2017-09-11 07:05] VITALS: O2SAT 98
[2017-09-11 08:53] LABS: HEMOGLOBIN 11.7 g/dL (12.0-16.0); MEAN CELL VOLUME 89.5 fl (80.0-105.0); MEAN CORPUSCULAR HEMOGLOBIN 28.5 pg (25.0-35.0); MEAN CORPUSCULAR HGB CONC 31.9 g/dl (31.0-37.0); MEAN PLATELET VOLUME 9.6 fl (7.0-11.0); RBC 4.1 10^6/uL (3.5-6.1); RED CELL DISTRIBUTION WIDTH 15.2 % (11.5-14.5); WHITE BLOOD COUNT 6.1 10^3/ul (4.5-11.0)
[2017-09-11 09:08] LABS: ALBUMIN 3.9 g/dL (3.0-4.8); ALT/SGPT 20 U/L (7-56); AST/SGOT 26 U/L (14-36); BLOOD UREA NITROGEN 13 mg/dL (7-21); CALCIUM 9.2 mg/dL (8.4-10.5); GFR AFRICAN-AMERICAN > 60; GFR NON-AFRICAN AMERICAN > 60
[2017-09-11] MEDS: cefTRIAXone 1 gm 1 GM/100 ML BAG IVPB SCH (10:51)
--- NOTE | 2017-09-11 11:55 | CP.PCM.DIS ---
Provider - Provider Date of Admission: 09/10/17 03:01 Attending physician: Freddie Cohen MD Primary care physician: Jaret Ortiz MD Consults: ID: Mellissa Time Spent in preparation of Discharge (in minutes): 45 Hospital Course - Lab Results Lab Results: Most Recent Lab Values WBC 6.1 10^3/ul (4.5-11.0) D 09/11/17 08:44 RBC 4.10 10^6/uL (3.5-6.1) 09/11/17 08:44 Hgb 11.7 g/dL (12.0-16.0) L 09/11/17 08:44 Hct 36.7 % (36.0-48.0) 09/11/17 08:44 MCV 89.5 fl (80.0-105.0) 09/11/17 08:44 MCH 28.5 pg (25.0-35.0) 09/11/17 08:44 MCHC 31.9 g/dl (31.0-37.0) 09/11/17 08:44 RDW 15.2 % (11.5-14.5) H 09/11/17 08:44 Plt Count 182 10^3/uL (120.0-450.0) 09/11/17 08:44 MPV 9.6 fl (7.0-11.0) 09/11/17 08:44 Gran % 91.9 % (50.0-68.0) H 09/10/17 00:10 Lymph % (Auto) 4.7 % (22.0-35.0) L 09/10/17 00:10 Power % (Auto) 3.2 % (1.0-6.0) 09/10/17 00:10 Eos % (Auto) 0.1 % (1.5-5.0) L 09/10/17 00:10 Baso % (Auto) 0.1 % (0.0-3.0) 09/10/17 00:10 Gran # 14.01 (1.4-6.5) H 09/10/17 00:10 Lymph # (Auto) 0.7 (1.2-3.4) L 09/10/17 00:10 Power # (Auto) 0.5 (0.1-0.6) 09/10/17 00:10 Eos # (Auto) 0.0 (0.0-0.7) 09/10/17 00:10 Baso # (Auto) 0.01 K/mm3 (0.0-2.0) 09/10/17 00:10 Neutrophils % (Manual) 92 % (50.0-70.0) H 09/10/17 00:10 Band Neutrophils % 1 % (0-2) 09/10/17 00:10 Lymphocytes % (Manual) 4 % (22.0-35.0) L 09/10/17 00:10 Monocytes % (Manual) 3 % (1.0-6.0) 09/10/17 00:10 Toxic Granulation Slight 09/10/17 00:10 Platelet Evaluation Normal (NORMAL) 09/10/17 00:10 Large Platelets Present 09/10/17 00:10 Ovalocytes Slight 09/10/17 00:10 PT 12.6 SECONDS (9.4-12.5) H 09/10/17 00:10 INR 1.10 (0.93-1.08) H 09/10/17 00:10 APTT 24.3 Seconds (25.1-36.5) L 09/10/17 00:10 pCO2 34 mm/Hg (35-45) L 09/10/17 09:30 pO2 67.0 mm/Hg (80-100) L 09/10/17 09:30 HCO3 25.3 mmol/L (21-28) 09/10/17 09:30 ABG pH 7.48 (7.35-7.45) H 09/10/17 09:30 ABG Total CO2 26.3 mmol.L (22-28) 09/10/17 09:30 ABG O2 Saturation 96.9 % (95-98) 09/10/17 09:30 ABG Base Excess 2.2 mmol/L (-2.0-3.0) 09/10/17 09:30 ABG Potassium 3.0 mmol/L (3.6-5.2) L 09/10/17 09:30 Sodium 138.0 mmol/L (132-148) 09/10/17 09:30 Chloride 108.0 mmol/L (98-107) H 09/10/17 09:30 Glucose 157 mg/dl (65-105) H 09/10/17 09:30 Lactate 1.6 mmol/L (0.7-2.1) 09/10/17 09:30 FiO2 21.0 % 09/10/17 09:30 Sodium 145 mmol/L (132-148) 09/11/17 08:44 Potassium 3.8 mmol/L (3.6-5.0) 09/11/17 08:44 Chloride 106 mmol/L (98-107) 09/11/17 08:44 Carbon Dioxide 27 mmol/L (21-33) 09/11/17 08:44 Anion Gap 16 (10-20) 09/11/17 08:44 BUN 13 mg/dL (7-21) 09/11/17 08:44 Creatinine 0.8 mg/dl (0.7-1.2) 09/11/17 08:44 Est GFR ( Amer) > 60 09/11/17 08:44 Est GFR (Non-Af Amer) > 60 09/11/17 08:44 Random Glucose 123 mg/dL (70-110) H 09/11/17 08:44 Calcium 9.2 mg/dL (8.4-10.5) 09/11/17 08:44 Phosphorus 3.3 mg/dL (2.5-4.5) 09/10/17 00:10 Magnesium 1.8 mg/dL (1.7-2.2) 09/10/17 00:10 Total Bilirubin 0.3 mg/dL (0.2-1.3) 09/11/17 08:44 AST 26 U/L (14-36) 09/11/17 08:44 ALT 20 U/L (7-56) 09/11/17 08:44 Alkaline Phosphatase 43 U/L (38-126) 09/11/17 08:44 Lactate Dehydrogenase 598 U/L (333-699) 09/10/17 00:10 Total Creatine Kinase 65 U/L (35-230) 09/10/17 00:10 Troponin I < 0.01 ng/mL 09/10/17 00:10 Total Protein 7.9 g/dL (5.8-8.3) 09/11/17 08:44 Albumin 3.9 g/dL (3.0-4.8) 09/11/17 08:44 Globulin 3.9 gm/dL 09/11/17 08:44 Albumin/Globulin Ratio 1.0 (1.1-1.8) L 09/11/17 08:44 Procalcitonin < 0.05 NG/ML (0.19-0.49) L 09/09/17 23:59 TSH 3rd Generation 0.80 mIU/mL (0.46-4.68) 09/09/17 23:59 Arterial Blood Potassium 3.0 mmol/L (3.6-5.2) L 09/10/17 09:30 Urine Color Yellow (YELLOW) 09/10/17 02:03 Urine Appearance Sl cloudy (CLEAR) 09/10/17 02:03 Urine pH 6.0 (4.7-8.0) 09/10/17 02:03 Ur Specific [place] 1.025 (1.005-1.035) 09/10/17 02:03 Urine Protein 100 mg/dL (<30 mg/dL) H 09/10/17 02:03 Urine Glucose (UA) Negative mg/dL (NEGATIVE) 09/10/17 02:03 Urine Ketones Negative mg/dL (NEGATIVE) 09/10/17 02:03 Urine Blood Negative (NEGATIVE) 09/10/17 02:03 Urine Nitrate Negative (NEGATIVE) 09/10/17 02:03 Urine Bilirubin Negative (NEGATIVE) 09/10/17 02:03 Urine Urobilinogen 0.2 E.U./dL (<1 E.U./dL) 09/10/17 02:03 Ur Leukocyte Esterase Negative [place]/uL (NEGATIVE) 09/10/17 02:03 Urine RBC 0 - 2 /hpf (0-2) 09/10/17 02:03 Urine WBC Negative /hpf (0-6) 09/10/17 02:03 Ur Epithelial Cells 4 - 5 /hpf (0-5) 09/10/17 02:03 Urine Bacteria Mod (NEG) 09/10/17 02:03 Urine Other Mucus 09/10/17 02:03 Urine Opiates Screen Negative (NEGATIVE) 09/10/17 02:03 Urine Methadone Screen Negative (NEGATIVE) 09/10/17 02:03 Ur Barbiturates Screen Negative (NEGATIVE) 09/10/17 02:03 Ur Phencyclidine Scrn Negative (NEGATIVE) 09/10/17 02:03 Ur Amphetamines Screen Negative (NEGATIVE) 09/10/17 02:03 U Benzodiazepines Scrn Negative (NEGATIVE) 09/10/17 02:03 U Oth Cocaine Metabols Negative (NEGATIVE) 09/10/17 02:03 U Cannabinoids Screen Negative (NEGATIVE) 09/10/17 02:03 - Hospital Course Hospital Course: Upon Admission: "87 year old female with past medical history significant for Alzheimer's, DVT in left lower extremity no longer on Eliquis, Hypertension, Recurrent UTIs, and Uterine prolapse presents with 1 day duration of cough and generalized fatigue. Patient states that she feels fine right now but that she felt subjective fevers at home (no chills). She does state that she has been coughing up green phlegm. Patient denies shortness of breath and chest pain associated with these symptoms. Patient's family is at bedside, including her daughter, who states that patient has been fatigued all day. Patient and her family deny any altered mentation. Of note, patient has been admitted to this facility multiple times for falls in the past. Her last ECHO was in 2015 - it showed EF of 51% with [place], MR, and [place]. Patient has also had a UTI that showed Klebsiella Pneumonia on Urine Culture on one of her past admissions. Finally, on past admission in November 2015, patient had DVT in left leg, but has since had Eliquis discontinued." Patient was admitted to [facility]. Head CT was negative. Patient was found to have a white count of 15.2 but was afebrile on admission with no other SIRS criteria; UA negative, procalcitonin was negative and CXR showed vascular congestion. ID was consulted. Blood cultures were negative x 2 and urine culture was positive for gram negative rods prelim. Patient was on IV abx empirically. As patient was having falls, echo was ordered which was unremarkable. Patient clinically improved and on day of discharge patient was deemed medically stable for discharge. Upon Discharge Patient stable for discharge home Patient to take antibiotics as prescribed and resume home meds Patient to follow up with PMD within 7 days If symptoms persist or worsen patient to visit ER immediately. Instructions discussed in detail with patient who understands and agrees. Discharge Exam - Head Exam Head Exam: ATRAUMATIC, NORMAL INSPECTION, NORMOCEPHALIC - Eye Exam Eye Exam: EOMI, Normal appearance, PERRL. absent: Conjunctival injection, Scleral icterus Pupil Exam: PERRL - ENT Exam ENT Exam: Mucous Membranes Moist - Neck Exam Neck exam: Full Rom, Normal Inspection - Respiratory Exam Respiratory Exam: Clear to PA & Lateral, NORMAL BREATHING PATTERN. absent: Rales, Rhonchi, Wheezes - Cardiovascular Exam Cardiovascular Exam: RRR, +S1, +S2 - GI/Abdominal Exam GI & Abdominal Exam: Normal Bowel Sounds, Soft. absent: Firm, Guarding, Tenderness - Rectal Exam Rectal Exam: Deferred - Extremities Exam Extremities exam: normal capillary refill, pedal pulses present - Back Exam Back exam: NORMAL INSPECTION. absent: rash noted - Neurological Exam Neurological exam: Alert (AOx2), CN II-XII Intact - Psychiatric Exam Psychiatric exam: Normal Affect, Normal Mood - Skin Skin Exam: Dry, Intact, Normal Color, Warm Discharge Plan - Discharge Medications Prescriptions: Azithromycin [Z-José] 250 mg PO DAILY 5 Days #6 tab Cephalexin [cephalexin] 500 mg PO Q12 7 Days #14 cap - Follow Up Plan Condition: FAIR Disposition: HOME/ ROUTINE Instructions: Pneumonia in Adults Additional Instructions: Patient stable for discharge home Patient to take antibiotics as prescribed and resume home meds Patient to follow up with PMD within 7 days If symptoms persist or worsen patient to visit ER immediately. Instructions discussed in detail with patient who understands and agrees. Referrals: Jaret Ortiz MD [Primary Care Provider] -
[2017-09-11 12:16] VITALS: BP 133/80; PULSE 78; RESP 20; TEMP 97.7
--- NOTE | 2017-09-11 19:53 | CARD ---
APPROVED REPORT EXAM: Two-dimensional and M-mode echocardiogram with Doppler and color Doppler. INDICATION MEDICAL CLEARANCE 2D DIMENSIONS Left Atrium (2D)3.8 (1.6-4.0cm)IVSd1.4 (0.7-1.1cm) LVDd3.0 (3.9-5.9cm)PWd1.3 (0.7-1.1cm) LVDs2.2 (2.5-4.0cm)FS (%) 26.0 % LVEF (%)52.8 (>50%) M-Mode DIMENSIONS Aortic Root3.20 (2.2-3.7cm)Aortic Cusp Exc.1.90 (1.5-2.0cm) Aortic Valve AoV Peak Fnernbzv335.0cm/Stu Peak GR.5mmHg Mitral Valve MV E Syirjeno54.5cm/sMV A Zbnqpvnv32.2cm/sMV [id number] E/A ratio0.7MVA (PHT)1.98cm2 TDI E/Lateral E'0.0E/Medial E'0.0 Tricuspid Valve TR Peak [id number]/sRAP [id number] Peak Gr.47mmHg [id number] LEFT VENTRICLE The left ventricle is normal size. There is mild concentric left ventricular hypertrophy. Left ventricle systolic function is low normal.EF-50% There is mild hypokinesis in the basal inferolateral wall. Transmitral Doppler flow pattern is Grade III-reversible restrictive diastolic dysfunction. No left ventricle thrombus noted on this study. There is no ventricular septal defect visualized. There is no left ventricular aneurysm. There is no mass noted in the left ventricle. RIGHT VENTRICLE The right ventricle is normal size. There is normal right ventricular wall thickness. The right ventricular systolic function is normal. ATRIA The left atrium size is normal. The right atrium size is normal. The interatrial septum is intact with no evidence for an atrial septal defect. AORTIC VALVE The aortic valve is thickened but opens well. The aortic valve is mildly sclerotic. There is trace aortic regurgitation. There is no aortic valvular stenosis. There is no aortic valvular vegetation. MITRAL VALVE The mitral valve is thickened but opens well. Mitral annular calcification is moderate. Mitral regurgitation is mild. There is no mitral valve stenosis. There is no evidence of mitral valve prolapse. TRICUSPID VALVE The tricuspid valve leaflets are thickened , but open well. There is mild tricuspid regurgitation.RVSP-57 mmof hg. There is no tricuspid valve stenosis. There is no tricuspid valve prolapse or vegetation. PULMONIC VALVE The pulmonic valve is mildly thickened. There is mild to moderate pulmonic valvular regurgitation. There is no pulmonic valvular stenosis. GREAT VESSELS The aortic root is normal in size. The ascending aorta is normal in size. The pulmonary artery is normal. The IVC is normal in size and collapses >50% with inspiration. PERICARDIAL EFFUSION There is no pleural effusion. There is no pericardial effusion. <Conclusion> The left ventricle is normal size. There is mild concentric left ventricular hypertrophy. Left ventricle systolic function is low normal.EF-50% There is trace aortic regurgitation. Mitral regurgitation is mild. There is mild tricuspid regurgitation.RVSP-57 mmof hg. The IVC is normal in size and collapses >50% with inspiration. There is no pericardial effusion. No Vegetation or thrombus noted.
--- NOTE | 2017-09-11 22:40 | PN ---
DATE: 09/11/2017 SUBJECTIVE: Patient is in bed, in no acute distress, was seen earlier. No fevers and chills. PHYSICAL EXAMINATION: VITAL SIGNS: Temperature is 98, blood pressure is 130/80, respiratory rate of 20. HEENT: Unremarkable. NECK: Supple. LUNGS: Decreased breath sounds. HEART: Normal S1 and S2. ABDOMEN: Soft, nontender. LABORATORY DATA: Reveals a white count of 6.1, hemoglobin of 11, platelets of 182. Chemistries revealed BUN of 13, creatinine of 0.8. Urinalysis is noted. Toxicology noted. Microbiology reveals a Gram-negative mary anne in the urine. Blood cultures are negative. ASSESSMENT AND PLAN: An 87-year-old female who was seen early this morning in 277, bed 1, doing well, with systemic inflammatory response syndrome, acute bronchitis and Gram-negative mary anne in the urine, on Rocephin and Zithromax, and awaiting for identity of the Gram-negative mary anne. Rashawn Willis MD
== END 2017-09-11 15:22 | disposition home or self-care (01) ==
LOC: ED 23:08 → ERH 09-10 03:01 → INTOOBSV 09-10 03:01 → ERH 09-10 03:45 → 2RSO 09-10 04:22
PROVIDERS: ADMIT Hospitalist; ATTEND Internal Medicine
DX: J20.9 Acute bronchitis, unspecified (principal); E11.9 Type 2 diabetes mellitus without complications; E87.6 Hypokalemia; G30.9 Alzheimer's disease, unspecified; F02.80 Dementia in other diseases classified elsewhere, unspecified severity, without behavioral disturbance, psychotic disturbance, mood disturbance, and anxiety; I10 Essential (primary) hypertension; Z86.718 Personal history of other venous thrombosis and embolism; R65.10 Systemic inflammatory response syndrome (SIRS) of non-infectious origin without acute organ dysfunction; Z66 Do not resuscitate; Z87.440 Personal history of urinary (tract) infections; Z90.49 Acquired absence of other specified parts of digestive tract; Z96.651 Presence of right artificial knee joint; H26.9 Unspecified cataract; R32 Unspecified urinary incontinence; Z88.5 Allergy status to narcotic agent; Z91.013 Allergy to seafood; Z87.892 Personal history of anaphylaxis
CPT/HCPCS: 36415; 70450; 71045; 80053; 81001; 82550; 82803; 83615; 83735; 84100; 84145; 84443; 84484; 85025; 85027; 85610; 85730; 87040; 87086; 87181; 93005; 93306; 96365; 96366; 96367; 96372; 97116; 97161; 97530; 99285; G0378; G0480; G8978; G8979; J0456; J0696; J1644